=== PATIENT | male | born 1965 | race Caucasian/White ===

== ENCOUNTER 2024-03-12 14:15 | Outpatient (CLI) | payer OTHER, SELFPAY | END 2024-03-12 14:16 | disposition home or self-care (01) | PROVIDERS: PCP Family Medicine; Visit Provider Surgery | DX: S81.811A Laceration without foreign body, right lower leg, initial encounter (principal); W22.8XXA Striking against or struck by other objects, initial encounter | CPT/HCPCS: 97597; G0463 ==

== ENCOUNTER 2024-03-26 15:15 | Outpatient (CLI) | payer OTHER, SELFPAY | END 2024-03-26 15:16 | disposition home or self-care (01) | LOC: WOUND 16:16 | PROVIDERS: PCP Family Medicine; Visit Provider Family Medicine | DX: S81.811A Laceration without foreign body, right lower leg, initial encounter (principal); W22.8XXA Striking against or struck by other objects, initial encounter | CPT/HCPCS: 11042 ==